=== PATIENT | male | born 1950 | race Caucasian/White ===

== ENCOUNTER 2023-11-21 13:50 | Day surgery (SDC) | payer MEDICARE, OTHER ==
[~2023-11-21] VITALS: Ht 177.8 cm; Wt 131.0 kg
[2023-11-21] VITALS (8 sets, daily range): BP systolic 133–165; BP diastolic 79–108; PULSE 76–104; RESP 15–18; TEMP 97.9; O2SAT 18–97
[2023-11-21] MEDS ORDERED: TIZA-189 PO (14:35)
[2023-11-21] MEDS ORDERED: POTA-206 PO (14:35)
[2023-11-21] MEDS ORDERED: normal saline 1000ml 1,000 ML IV SCH (14:35)
[2023-11-21] MEDS ORDERED: MAGN250T29 PO (14:35)
[2023-11-21] MEDS ORDERED: ROSU10TA28 PO (14:35)
[2023-11-21] MEDS ORDERED: AMLO10TA13 PO (14:35)
[2023-11-21] MEDS ORDERED: CHOL200080 PO (14:35)
[2023-11-21] MEDS ORDERED: FLO0.4C PO (14:35)
[2023-11-21] MEDS ORDERED: APIX5TAB3 PO (14:35)
[2023-11-21] MEDS ORDERED: midazolam 1 mg/ML 2ml injection ONE ×2 (14:56→15:37)
[2023-11-21] MEDS ORDERED: fentaNYL/PF 50MCG/1 ML 2ML syringe ONE (14:56)
[2023-11-21] MEDS ORDERED: LIDOcaine 1% w/EPI 1:100,000 inj. MDV 50 ML VIAL ONE (14:57)
[2023-11-21] MEDS ORDERED: clindamycin-Cleocin 900mg/D5W 50 ML IV ONE (15:20)
[2023-11-21] MEDS ORDERED: vancomycin 1,000mg inj ONE (15:24)
[2023-11-21 15:26] LABS: BASOPHILS # (AUTO) 0.1 X10'3 (0-0.2); BASOPHILS % (AUTO) 0.8 % (0-1); EOSINOPHILS # (AUTO) 0.2 X10'3 (0-0.9); EOSINOPHILS % (AUTO) 3.6 % (0-6); HEMATOCRIT 40.1 % (42.0-52.0); HEMOGLOBIN 13.3 g/dl (14.0-17.9); LYMPHOCYTES # (AUTO) 1.3 X10'3 (1.1-4.8); LYMPHOCYTES % (AUTO) 18.7 % (21-51); MEAN CORPUSCULAR HEMOGLOBIN 28.8 PG (27.0-31.0); MEAN CORPUSCULAR HGB CONC 33.1 g/dL (33.0-36.5); MEAN CORPUSCULAR VOLUME 86.9 FL (78-98); MEAN PLATELET VOLUME 7.2 FL (7.4-10.4); MONOCYTES # (AUTO) 0.5 X10'3 (0-0.9); MONOCYTES % (AUTO) 7.3 % (2-12); NEUTROPHILS # (AUTO) 4.8 X10'3 (1.8-7.7); NEUTROPHILS % (AUTO) 69.6 % (42-75); PLATELET COUNT 213 X10'3 (140-440); RED BLOOD COUNT 4.61 X10'6 (4.70-6.10); RED CELL DISTRIBUTION WIDTH 14.5 % (11.5-14.5); WHITE BLOOD COUNT 6.8 X10'3 (4.5-11.0)
[2023-11-21 15:38] LABS: ALBUMIN 3.6 G/DL (3.4-5.0); ANION GAP 11 (8-16); BLOOD UREA NITROGEN 19 MG/DL (7-18); BUN/CREATININE RATIO 16.5 (10.0-20.0); CALCIUM 9.3 MG/DL (8.5-10.1); CHLORIDE 106 MMOL/L (99-107); CREATININE 1.15 MG/DL (0.60-1.10); GLUCOSE 88 MG/DL (70-104); POTASSIUM 3.4 MMOL/L (3.5-5.1); SODIUM 145 MMOL/L (135-145); eCRCL 57 ML/MIN; eGFR 62 ML/MIN
[2023-11-21 15:40] LABS: APTT 26 SECONDS (22-32); PROTHROMBIN TIME 10.8 SECONDS (9.0-12.0)
[2023-11-21] MEDS ORDERED: HYDROcodone/acetaminophen 5mg/325mg tablet PO PRN (17:30)
[2023-11-21] MEDS ORDERED: HYDROcodone/acetaminophen 10/325mg tab PO PRN (17:30)
== END 2023-11-21 19:00 | disposition home or self-care (01) ==
LOC: SSTAY O 13:50
PROVIDERS: ATTEND Student in an Organized Health Care Education/Training Program
DX: R00.1 Bradycardia, unspecified (principal); I10 Essential (primary) hypertension; E78.00 Pure hypercholesterolemia, unspecified; I48.91 Unspecified atrial fibrillation; G47.33 Obstructive sleep apnea (adult) (pediatric); Z79.01 Long term (current) use of anticoagulants; Z79.899 Other long term (current) drug therapy; Z88.0 Allergy status to penicillin
CPT/HCPCS: 33208; 36415; 80048; 85025; 85610; 85730; 93005; 99152; 99153; C1785; C1898; J2250; J3010; J3370; J3490; A4565; A6258